=== PATIENT | male | born 1945 | race Caucasian/White ===

== ENCOUNTER 2017-02-24 06:25 | Emergency (ER) | payer MEDICARE ==
--- NOTE | 2017-03-02 15:36 | ER ---
ADMIT: 02/24/2017 RM/LOC: ER [facility] MR#: [id number] [facility] [id number] KAREN FREY [address] [place] [address] [address] [place], [place] [id number] Emergency Room Report SEX: M AGE: 71 : 1945 DATE: 02/24/2017 ADDENDUM: 71-year-old white male coming in with left flank pain. CT scan was negative except he did have diverticulosis. He had no nausea, no vomiting, but pain. CT did show significant diverticulosis without diverticulitis. His CBC, chemistry, and lipase were all negative. At this time, we treated him conservatively, low residual diet. Bentyl 20 p.o. q.6, Tylenol, and then follow up when he gets back home. CONDITION ON DISCHARGE: Good. Wilber Carnes MD/ nena JOB #: [id number] CC: Noe Dewitt MD, Attending Physician Emilio Crenshaw MD, Family Physician
== END 2017-02-24 09:54 | disposition home or self-care (01) ==
LOC: ER 06:25
DX: K57.90 Diverticulosis of intestine, part unspecified, without perforation or abscess without bleeding (principal); J45.909 Unspecified asthma, uncomplicated; I10 Essential (primary) hypertension; Z88.0 Allergy status to penicillin